=== PATIENT | female | born 1930 | race African-American/Black ===

== ENCOUNTER 2016-04-05 11:58 | Emergency (ER) | payer OTHER, BC ==
[2016-04-05 12:27] VITALS: TEMP 97.9; BMI 24.4
--- NOTE | 2016-04-05 12:34 | PDOC ---
History of Present Illness - General History Source: Patient, Old Records Exam Limitations: No Limitations - History of Present Illness Initial Comments: 04/05/16 12:36 The patient is an 85-year-old woman, accompanied by family, with a significant past medical history of hypertension, hypercholesterolemia, congestive heart failure (with pacemaker), end-stage renal disease (on hemodialysis on MWF), gatsroesophageal reflux disease and thyroid disease who was sent to the emergency department by her dialysis clinic for further evaluation of an irregular heart beat. Patient was in her outpatient dialysis when she was noted to have labile blood pressure and heart rates. Her last dialysis treatment was on Sunday without complications. Patient denies experiencing any chest pain, lightheadedness, dizziness, headaches, shortness of breath, visual changes, nausea, vomiting. Patient denies fever,chills, generalized weakness. No urinary complaints. Allergies: Penicillin Past Surgical History: Right nephrectomy. Right hernia repair. Permanet pacemaker. Primary Care Physician: Dr. Rajan Cook [phone]/ [phone] Contamination Consultant: Dr. Angelita Sullivan [phone] Board Liner Operator: Dr. Ronaldo Gonzalez <Anel Rowell - Last Filed: 04/05/16 13:45> <Taco Gupta - Last Filed: 04/05/16 15:51> - General Chief Complaint: Blood Pressure Problem Stated Complaint: Irregular Heart Beat Time Seen by Provider: 04/05/16 12:06 Past History <Anel Rowell - Last Filed: 04/05/16 13:45> - Past Medical History Anemia: Yes Asthma: No Cancer: No Cardiac Disorders: Yes (pacemaker) CVA: No COPD: No CHF: No Dementia: No Diabetes: No Dialysis: Yes ([facility], sun/sun/) GI Disorders: Yes (acid reflux) Disorders: No HTN: Yes Hypercholesterolemia: Yes Liver Disease: No Seizures: No Thyroid Disease: Yes (parathroid removed) - Surgical History Abdominal Surgery: Yes (RIGHT nephrectomy & Right inguinal hernia REPAIR) Appendectomy: No Cardiac Surgery: No Cholecystectomy: No Lung Surgery: No Neurologic Surgery: No Orthopedic Surgery: No - Immunization History Immunization Up to Date: Yes - Psycho/Social/Smoking Cessation Hx Anxiety: No Suicidal Ideation: No Smoking History: Never smoked Have you smoked in the past 12 months: No Information on smoking cessation initiated: No Hx Alcohol Use: No Drug/Substance Use Hx: No Substance Use Type: None Hx Substance Use Treatment: No <Taco Gupta - Last Filed: 04/05/16 15:51> - Past Medical History Allergies/Adverse Reactions: Allergies Allergy/AdvReac Type Severity Reaction Status Date / Time Penicillins Allergy Itching Verified 04/05/16 12:27 Home Medications: Ambulatory Orders Acetaminophen [Tylenol] 650 mg PO DAILY 04/05/16 Brimonidine Tartrate [Alphagan 0.15% -] 1 drop OU BID 04/05/16 Carvedilol 3.125 mg PO BID 04/05/16 Cinacalcet HCl [Sensipar] 90 mg PO DAILY 04/05/16 Docusate Sodium [Colace -] 100 mg PO DAILY 04/05/16 Iron Fum/FA/Vit Bcomp,C [Dialyvite 800 with Iron Tab] 1 each PO DAILY 04/05/16 Iron Polysaccharides [Niferex-150 -] 150 mg PO DAILY 04/05/16 Latanoprost 0.005% Eye Drops [Xalatan 0.005% Eye Drops -] 1 drop HS 04/05/16 Omeprazole 20 mg PO DAILY 04/05/16 Pantoprazole Sodium 40 mg PO DAILY 04/05/16 Sennosides [Senna] 8.6 mg PO DAILY 04/05/16 Review of Systems - Review of Systems Constitutional: No: Chills, Fever Respiratory: No: Cough, Shortness of Breath Cardiac (ROS): No: Chest Pain, Edema, Lightheadedness, Palpitations, Syncope ABD/GI: No: Nausea : No: Dysuria, Frequency Neurological: No: Headache All Other Systems: Reviewed and Negative <Taco Gupta - Last Filed: 04/05/16 15:51> *Physical Exam - Vital Signs Last Vital Signs Temp Pulse Resp BP Pulse Ox 97.9 F 54 L 16 129/88 100 04/05/16 12:17 04/05/16 12:17 04/05/16 12:17 04/05/16 12:17 04/05/16 12:17 - Physical Exam Comments: 04/05/16 12:44 GENERAL: The patient is awake, alert, and fully oriented, in no acute distress. HEAD: Normal with no signs of trauma. EYES: Pupils equal, round and reactive to light, extraocular movements intact, sclera anicteric, conjunctiva clear with no pallor. ENT: Ears normal, nares patent, oropharynx clear without exudates. Moist mucous membranes. NECK: Normal range of motion, supple without lymphadenopathy, JVD, or masses. LUNGS: slightly decreased at the right base, otherwise clear. HEART: Irregular rate with alternation bradycardia with regular tachycardia however patient is asymptomatic. There is also a 3/6 systolic ejection murmur that is best heard at the right upper sternal border. There is also a positive third heart sound Regular rate and rhythm, normal S1 and S2 without murmur or rub. ABDOMEN: Soft/nontender/nondistended. BS wnl. No guarding or rebound. No palpable masses. No hepatosplenomegaly. EXTREMITIES: There is palpabale thrill in the right upper extremity fistula that is neurovasculary intact. Normal range of motion, no edema. No clubbing or cyanosis. No cords, erythema, or tenderness. NEUROLOGICAL: Cranial nerves II through XII grossly intact. Normal speech. PSYCH: Normal mood, normal affect. SKIN: Warm, Dry, normal turgor, no rashes or lesions noted. <Anel Rowell - Last Filed: 04/05/16 13:45> - Vital Signs Last Vital Signs Temp Pulse Resp BP Pulse Ox 97.9 F 54 L 16 129/88 100 04/05/16 12:17 04/05/16 12:17 04/05/16 12:17 04/05/16 12:17 04/05/16 12:17 <Taco Gupta - Last Filed: 04/05/16 15:51> Heart Score/ECG Review #1 ECG reviewed & interpreted by me at: 12:23 Compared to previous ECG there are: No significant change (11/03/15) 04/05/16 13:18 Atrially sensed ventricular pacemaker at variable rates, ranging from 60 to 120. No secondary signs of acute ischemic change. <Taco Gupta - Last Filed: 04/05/16 15:51> ED Treatment Course - LABORATORY CBC & Chemistry Diagram: 04/05/16 12:36 04/05/16 12:36 - RADIOLOGY Radiograph Interpretation: 04/05/16 13:44 EXAM: RAD/CHEST X-RAY PORTABLE IMPRESSION: Since the prior study of 11/03/2015 at 1908 hours, again noted is a marked scoliosis with convexity to the right, large heart, sclerotic knob and double lead pacemaker. There is some scarring at the right base and in the lingula. There is no sign of infiltrate or failure. There are degenerative spine and shoulder changes. There is no change of an adverse nature since 2015. <Anel Rowell - Last Filed: 04/05/16 13:45> - LABORATORY CBC & Chemistry Diagram: 04/05/16 12:36 04/05/16 12:36 - RADIOLOGY Radiology Studies Ordered: Category Date Time Status CHEST X-RAY PORTABLE* [RAD] Stat Radiology 04/05/16 12:27 Ordered <Taco Gupta - Last Filed: 04/05/16 15:51> Medical Decision Making - Medical Decision Making 04/05/16 12:[address] José Luis Peck. Dr. Eloina Gutierrez will arrive later and examine the patient. <Anel Rowell - Last Filed: 04/05/16 13:45> - Medical Decision Making 04/05/16 13:24 A portion of this note was documented by scribe services under my direction. I have reviewed the details of the note, within reason, and agree with the documentation with the following case summary and management plan written by me. 85-year-old female with history of hypertension, CHF status post pacemaker, atrial fibrillation, end-stage renal disease on Sunday/Sunday/Sunday dialysis sent from her routine dialysis for evaluation of labile blood pressure and heart rate. Patient is completely asymptomatic, denies any infectious or dehydration complaints. Vitals as noted, heart rate variable from 60-120. Blood pressure stable and normal in the ED. Well-appearing, exam as noted otherwise 85-year-old female with history of atrial fibrillation and atrially paced pacemaker presents asymptomatic with variable heart rate. On prior EKGs, similar presentation likely 2/2 underlying afib and irregular pacing of pacemaker. check electrolytes given due for HD CXR EKG discussed with Dr. Peck, will be seen by Dr. Johnson 04/05/16 14:12 Labs are within normal limits, baseline elevated creatinine without electrolyte disturbance. Chest x-ray without acute pathology. Seen by Dr. Meeks at bedside, he has arranged for the patient to have outpatient dialysis this afternoon. Awaiting evaluation from cardiology Dr. Gutierrez. 04/05/16 15:[address] Johnson, cleared for discharge, agrees this is likely atrial fibrillation with variable conduction. Patient feels and looks well, agrees with discharge plan, will proceed directly to dialysis. <Taco Gupta - Last Filed: 04/05/16 15:51> *DC/Admit/Observation/Transfer - Attestations Scribe Attestion: 04/05/16 12:44 Documentation prepared by Anel Rowell, acting as phlebotomist medical lab assistant for Taco Gupta MD. <Anel Rowell - Last Filed: 04/05/16 13:45> <Taco Gupta - Last Filed: 04/05/16 15:51> Diagnosis at time of Disposition: Irregular heart rate, ESRD (end stage renal disease) on dialysis - Discharge Dispostion Disposition: HOME Condition at time of disposition: Stable - Referrals Referrals: Rajan Cook MD [Primary Care Provider] - Garry Meeks MD [Staff Physician] - Ronaldo Gonzalez MD [Staff Physician] - - Patient Instructions Printed Discharge Instructions: DI for Atrial Fibrillation Additional Instructions: Activity as tolerated. Stay hydrated. Blood tests today showed no acute abnormalities. Your irregular heart rate is likely due to to your underlying atrial fibrillation, and is expected. Continue your medications as previously prescribed by your physician. Proceed directly to dialysis as scheduled by Dr. Meeks. You should also follow up with Dr. Cook and Dr. Gonzalez as soon as possible regarding today's emergency department visit. Return to the emergency department for any new or concerning symptoms, particularly lightheadedness, chest pain or difficulty breathing, palpitations.
[2016-04-05 13:12] LABS: BASOPHIL 1.8 % (0-2.0); EOSINOPHIL 8.4 % (0-4.5); MCH 28.5 pg (25.7-33.7); MCHC 31.5 g/dl (32.0-36.0); MEAN CELL VOLUME 90.3 fl (80-96); NEUTROPHILS 53.7 % (42.8-82.8); PLATELET COUNT 216 K/MM3 (134-434); RDW 16.2 % (11.6-15.6); WHITE BLOOD COUNT 4.2 K/mm3 (4.0-10.0)
[2016-04-05 13:33] LABS: INR 1.07 (0.82-1.09); PROTHROMBIN TIME (PATIENT) 11.8 SEC (9.98-11.88)
[2016-04-05 13:36] LABS: ACTIVATED PTT 28.7 SECONDS (26.9-34.4)
[2016-04-05 13:37] LABS: ALBUMIN 2.7 g/dl (3.4-5.0); CALCIUM 7.4 mg/dL (8.5-10.1); MAGNESIUM 1.9 mg/dL (1.8-2.4)
[2016-04-05 13:39] LABS: CREATININE 6.8 mg/dL (0.55-1.02)
[2016-04-05 13:57] LABS: BILIRUBIN,TOTAL 0.3 mg/dL (0.2-1.0); TOT PROT 5.8 g/dl (6.4-8.2); TROPONIN I 0.03 ng/ml (0.00-0.05)
--- NOTE | 2016-04-05 14:43 | CONSULT ---
Consult - text type - Consultation Consultation Note: Renal Consult for ESRD on HD This is a 85 year old woman with PMHx of ESRD on HD (MWF @ [facility] ), Hx of Nephrectomy, Afib, Cardiomyopathy, PPM who presented from the dialysis unit with irregular and fluctuating HR before starting dialysis. Pt HR was in the 80s on presentation and then dropped to 44 and then 104 in a few minute time span. Pt was symptomatic during this time. Denies any dizziness, CP, SOB, CEDEÑO, lethargy, weakness. No fever or chills, Abd pain, N/V/D. In the ED pt noted to be in Afib. HR's have been in the 80-> 90's. No acute complaints. Last dialysis was Sunday w/o complication. PMhx: as above Allergies: NKDA Family Hx: NC Social Hx: NO T/A/D ROS: as per HPI, all other pertinent ros negative Home Meds: Home Medications Medication Instructions Recorded Acetaminophen [Tylenol] 650 mg PO DAILY 04/05/16 Brimonidine Tartrate [Alphagan 1 drop OU BID 04/05/16 0.15% -] Carvedilol 3.125 mg PO BID 04/05/16 Cinacalcet HCl [Sensipar] 90 mg PO DAILY 04/05/16 Docusate Sodium [Colace -] 100 mg PO DAILY 04/05/16 Iron Fum/FA/Vit Bcomp,C [Dialyvite 1 each PO DAILY 04/05/16 800 with Iron Tab] Iron Polysaccharides [Niferex-150 150 mg PO DAILY 04/05/16 -] Latanoprost 0.005% Eye Drops 1 drop HS 04/05/16 [Xalatan 0.005% Eye Drops -] Omeprazole 20 mg PO DAILY 04/05/16 Pantoprazole Sodium 40 mg PO DAILY 04/05/16 Sennosides [Senna] 8.6 mg PO DAILY 04/05/16 Vital Signs Temperature 97.9 F 04/05/16 12:17 Pulse Rate 54 L 04/05/16 12:17 Respiratory Rate 16 04/05/16 12:17 Blood Pressure 129/88 04/05/16 12:17 O2 Sat by Pulse Oximetry (%) 100 04/05/16 12:17 Gen: NAD, awake and alert HEENT: NC/AT, MMM CVS: irregular, No M/R Lungs: CTA Abd: Soft NT/ND Ext: No edema, clubbing or edema Access: Right ARM AVF + thrill CBC, BMP 04/05/16 12:36 04/05/16 12:36 A/P 85 year old woman with PMHx of ESRD on HD (MWF @ [facility]), Hx of Nephrectomy, Afib, Cardiomyopathy, PPM who presented from the dialysis unit with irregular and fluctuating HR before starting dialysis. #Afib with flucatuating HR Cardiology Evalulatoin HR WNL now no acute sympotms Cardiac Enzymes WNL #ESRD on HD for HD today, if stable for discharge can be done as outpatient if pt requires inpatient montoring will plan for dialysis at [facility] Thank you Garry Meeks DO
--- NOTE | 2016-04-05 15:15 | CON.CARD ---
Cardiology Consult (text) - Consultation Consultation Note: CC: tachy-izabel 84 year old female with HTN, afib, s/p PPM, ESRD on HD, s/p nephrectomy, GERD, anemia who presents from HD with variable heart rate. Hr noted to vary from 40's to > 100 bpm in short time frame. States she holds her coreg on hd days to avoid hypotension patient states she is asx, in her usual state of health. no change in po intake or recent infectious sx's. recent remote monitoring check of ppm function by outpatient cook night earlier this month. Lower rate limit 50 bpm. Denies orthopnea, pnd, le edema, cp, sob, dizziness, claudication or transient neurologic sx's. Denies f/c/s, n/v/d, visual disturbances, rash, cough. Past Medical History: per hpi Past Surgical History: Yes: Nephrectomy, Permanent Pacemaker Social History: never tobacco, no etoh or illicits Fam Hx: Daughter (HTN), mother with enlarged heart. ROS: per hpi Ambulatory Orders Acetaminophen [Tylenol] 650 mg PO DAILY 04/05/16 Brimonidine Tartrate [Alphagan 0.15% -] 1 drop OU BID 04/05/16 Carvedilol 3.125 mg PO BID 04/05/16 Cinacalcet HCl [Sensipar] 90 mg PO DAILY 04/05/16 Docusate Sodium [Colace -] 100 mg PO DAILY 04/05/16 Iron Fum/FA/Vit Bcomp,C [Dialyvite 800 with Iron Tab] 1 each PO DAILY 04/05/16 Iron Polysaccharides [Niferex-150 -] 150 mg PO DAILY 04/05/16 Latanoprost 0.005% Eye Drops [Xalatan 0.005% Eye Drops -] 1 drop HS 04/05/16 Omeprazole 20 mg PO DAILY 04/05/16 Pantoprazole Sodium 40 mg PO DAILY 04/05/16 Sennosides [Senna] 8.6 mg PO DAILY 04/05/16 Vital Signs - 24 hr 04/05/16 12:17 Temperature 97.9 F Pulse Rate 54 L Respiratory 16 Rate Blood Pressure 129/88 O2 Sat by Pulse 100 Oximetry (%) Intake & Output 04/03/16 04/04/16 04/05/16 04/06/16 07:59 07:59 07:59 07:59 Weight 94 lb NAD, calm. Lying flat comfortably JVD flat, neck supple RRR nl s1, s2 2/6 murmur at apex and LSB Trace basilar rales + bs soft nt nd ext without e/c/c + dp/pt no jaundice, diaphoresis CBC, BMP 04/05/16 12:36 04/05/16 12:36 Laboratory Tests 11/08/15 04/05/16 07:00 12:36 Magnesium 1.9 Total Bilirubin 0.3 AST 18 D ALT 9 L D Alkaline Phosphatase 993 H 1535 H D Troponin I 0.03 Albumin 2.7 L EKG: as-vpaced. Underlying atrial rhythm likely svt with conversion to SR and ? fusion beat. tele: intermittent svt with conversion to sinus izabel. echo 10/2015: Mildly decreased LV function, PPM lead. Mild AR. Mild-mod MR, mod TR. RVSP 30-40. Dense calcifications on MV and AV, can't rule out veg. Small effusion. L/RHC 2011: wedge 14, PA 32/10, RA 5; cors: 50-60% pRCA, 30-50% pLCX, mild fdiffuse LAD; EF 35% global; 84 year old female with HTN, afib, s/p PPM, ESRD on HD, s/p nephrectomy, GERD, anemia who presents from HD with variable heart rate. afib (tachy -izabel) - difficult to assess underlying rhythm but likely intermittent rapid SVT/ flutter in setting of holding av rose blockade (does regularly on HD days). - recent ppm check wnl. frequent mode switching. lower rate limit of 50 bpm. tachy-izabel likely 2/2 intermittent -vpaced rhythm in setting of svt and then conversion to sinus (lower rate limit 50 bpm). - No concerning findings. will f/u with cook night regarding rate control regimen and need for adjustment of pacemaker settings. - no signs of infection of hypovolemia at this time driving heart rate. - CHADS-VASC 3--3%/yr risk of CVA. But has fall risk which has deemed her too high risk for AC. Long history of being off anticoagulation. Has declined LA appendage closure. Con't ASA therapy. HTN - normotensive on outpatient coreg. Cont. NICM - EF naheed 35% in [address] ([address] che may have been slightly better/45%). Now low normal on coreg. Addition of CAROL/ARB has been limited by low bp's. - euvolemic with volume managment per HD. s/p PPM - home monitoring per Dr. Che, con't routine outpatient checks Elevated alk phos - thought to be 2/2 renal disease stable for d/c to HD from cardiovascular perspective with outpatient cardiology follow up
[2016-04-05 16:11] VITALS: BP 122/72; PULSE 62
--- NOTE | 2016-04-06 16:13 | EKG ---
Test Reason : Blood Pressure : / mmHG Vent. Rate : 097 BPM Atrial Rate : 115 BPM P-R Int : 000 ms QRS Dur : 156 ms QT Int : 374 ms P-R-T Axes : 000 -48 112 degrees QTc Int : 474 ms Atrial-sensed ventricular-paced rhythm ECG SHOWING POSSIBLE SVT FOLLOWED BY SINUS RHYTHM ABNORMAL ECG Confirmed by MO DE, TAMMIE ([id number]) on 04/06/2016 4:12:46 PM Referred By: Confirmed By:TAMMIE HASSAN MD
== END 2016-04-05 16:11 | disposition home or self-care (01) ==
LOC: JER 11:58
DX: R00.9 Unspecified abnormalities of heart beat (principal); N18.6 End stage renal disease; I12.0 Hypertensive chronic kidney disease with stage 5 chronic kidney disease or end stage renal disease; Z99.2 Dependence on renal dialysis; Z95.0 Presence of cardiac pacemaker; K21.9 Gastro-esophageal reflux disease without esophagitis; E78.00 Pure hypercholesterolemia, unspecified; E07.9 Disorder of thyroid, unspecified
CPT/HCPCS: 36415; 71010-TC; 80053; 82550; 83735; 84484; 85025; 85610; 85730; 93005; 93010; 99282-25

== ENCOUNTER 2017-08-01 10:43 | Emergency (ER) | payer OTHER, BC ==
[2017-08-01 10:53] VITALS: BP 111/67; PULSE 92; TEMP 98.7; BMI 19.0
[2017-08-01] MEDS ORDERED: ACETAMINOPHEN 500 MG TABLET (FP) PO ONE (11:30)
[2017-08-01] MEDS ORDERED: ACETAMINOPHEN 325 MG TABLET (FP) ONE ×2 (11:55→11:59)
--- NOTE | 2017-08-01 12:45 | PDOC ---
History of Present Illness <Javad Scott - Last Filed: 08/01/17 13:24> - History of Present Illness Initial Comments: 08/01/17 12:45 "The patient is an 86 year old female with a significant PMH of AFib (not on blood thinners), CHF (s/p PPM) ESRD (dialysis MWF), and partial blindness who presents to the emergency department for evaluation s/p mechanical fall prior to arrival. The patients daughter reports the patient was reaching for her walker in the bathroom when the walker slid forward, after which the patient fell to the floor and hit her head. She reports developing a frontal hematoma in the mid forehead but denies any pain. The patient denies LOC. Denies CP/SOB/ palpitations/lightheadedness at any time. The patients daughter notes the patient was set to undergo dialysis today but was instructed by Dr. Sullivan to come to the ED first for evaluation of her fall. Pt denies pain anywhere besides where she struck her head. The patient denies chest pain, shortness of breath, and dizziness. Denies fever, chills, nausea, vomit, diarrhea and constipation. Denies dysuria, frequency, urgency and hematuria. Allergies: Penicillins Past surgical history: Right nephrectomy. Right hernia repair. PPM. Social history: No reported cigarette, alcohol, or drug use. PCP: Dr. Joyce Herrera: Dr. Angelita Sullivan <Loy Monzon - Last Filed: 08/01/17 14:42> - General Chief Complaint: Injury Stated Complaint: HEAD INJURY Time Seen by Provider: 08/01/17 10:57 Past History <Javad Scott - Last Filed: 08/01/17 13:24> - Past Medical History Anemia: Yes Asthma: No Cancer: No Cardiac Disorders: Yes (pacemaker) CVA: No COPD: No CHF: No Dementia: No Diabetes: No Dialysis: Yes ([facility], mon/sun/) GI Disorders: Yes (acid reflux) Disorders: No HTN: Yes Hypercholesterolemia: Yes Liver Disease: No Seizures: No Thyroid Disease: Yes (parathroid removed) - Surgical History Abdominal Surgery: Yes (RIGHT nephrectomy & Right inguinal hernia REPAIR) Appendectomy: No Cardiac Surgery: No Cholecystectomy: No Lung Surgery: No Neurologic Surgery: No Orthopedic Surgery: No - Immunization History Immunization Up to Date: Yes - Suicide/Smoking/Psychosocial Hx Smoking History: Never smoked Have you smoked in the past 12 months: No Hx Alcohol Use: No Drug/Substance Use Hx: No Substance Use Type: None Hx Substance Use Treatment: No <NicolásLoy - Last Filed: 08/01/17 14:42> - Past Medical History Allergies/Adverse Reactions: Allergies Allergy/AdvReac Type Severity Reaction Status Date / Time Penicillins Allergy Itching Verified 04/05/16 12:27 Home Medications: Ambulatory Orders Acetaminophen [Tylenol] 650 mg PO DAILY 04/05/16 Brimonidine Tartrate [Alphagan 0.15% -] 1 drop OU BID 04/05/16 Cinacalcet HCl [Sensipar] 90 mg PO DAILY 04/05/16 Ferrous Fum/Folic Acid/Bcomp,C [Dialyvite 800 with Iron Tab] 1 each PO DAILY Omeprazole 20 mg PO DAILY 04/05/16 Aspirin 81 mg PO DAILY 08/01/17 Metoprolol Tartrate 25 mg PO DAILY 08/01/17 Review of Systems - Review of Systems Comments:: 08/01/17 12:47 "GENERAL/CONSTITUTIONAL: No fever or chills. No weakness. HEAD, EYES, EARS, NOSE AND THROAT: (+) Frontal hematoma, no active bleeding. No change in vision. No ear pain or discharge. No sore throat. CARDIOVASCULAR: No chest pain or shortness of breath. RESPIRATORY: No cough, wheezing, or hemoptysis. GASTROINTESTINAL: No nausea, vomiting, diarrhea or constipation. GENITOURINARY: No dysuria, frequency, or change in urination. MUSCULOSKELETAL: No joint or muscle swelling or pain. No neck or back pain. SKIN: No rash NEUROLOGIC: No headache, vertigo, loss of consciousness, or change in strength/ sensation. ENDOCRINE: No increased thirst. No abnormal weight change. HEMATOLOGIC/LYMPHATIC: No anemia, easy bleeding, or history of blood clots. ALLERGIC/IMMUNOLOGIC: No hives or skin allergy. " <Loy Monzon - Last Filed: 08/01/17 14:42> *Physical Exam - Vital Signs Last Vital Signs Temp Pulse Resp BP Pulse Ox 98.7 F 92 H 16 111/67 98 08/01/17 10:45 08/01/17 10:45 08/01/17 10:45 08/01/17 10:45 08/01/17 10:45 <Javad Scott - Last Filed: 08/01/17 13:24> - Vital Signs Last Vital Signs Temp Pulse Resp BP Pulse Ox 98.7 F 92 H 16 111/67 98 08/01/17 10:45 08/01/17 10:45 08/01/17 10:45 08/01/17 10:45 08/01/17 10:45 - Physical Exam Comments: 08/01/17 12:47 "GENERAL: Awake, alert, and fully oriented, in no acute distress. HEAD: + small hematoma to forehead, no laceration EYES: PERRLA, EOMI, sclera anicteric, conjunctiva clear ENT: Auricles normal inspection, hearing grossly normal, nares patent, oropharynx clear without exudates. Moist mucosa NECK: Nontender, no stepoffs, Normal ROM, supple, no lymphadenopathy, JVD, or masses LUNGS: Breath sounds equal, clear to auscultation bilaterally. No wheezes, and no crackles HEART: Regular rate and rhythm, normal S1 and S2, no murmurs, rubs or gallops ABDOMEN: Soft, nontender, normoactive bowel sounds. No guarding, no rebound. No masses EXTREMITIES: Normal range of motion, no edema. No clubbing or cyanosis. No cords , erythema, or tenderness NEUROLOGICAL: Cranial nerves II through XII intact. 5/5 strength and sensation in all extremities, Normal speech, normal gait, normal cerebellar function SKIN: Warm, Dry, normal turgor, no rashes or lesions noted. " <Loy Monzon - Last Filed: 08/01/17 14:42> ED Treatment Course - Medications Given in the ED: ED Medications Discontinued Medications Generic Name Dose Route Start Last Admin Trade Name Freq PRN Reason Stop Dose Admin Acetaminophen 1,000 mg 08/01/17 11:30 08/01/17 12:05 Tylenol - PO 08/01/17 11:31 1,000 mg ONCE ONE Administration <Javad Scott - Last Filed: 08/01/17 13:24> - RADIOLOGY Radiology Studies Ordered: Category Date Time Status HEAD CT WITHOUT CONTRAST [CT] Stat CT Scan 08/01/17 11:30 Ordered - Medications Given in the ED: ED Medications Discontinued Medications Generic Name Dose Route Start Last Admin Trade Name Freq PRN Reason Stop Dose Admin Acetaminophen 1,000 mg 08/01/17 11:30 08/01/17 12:05 Tylenol - PO 08/01/17 11:31 1,000 mg ONCE ONE Administration <Loy Monzon - Last Filed: 08/01/17 14:42> Medical Decision Making - Medical Decision Making 08/01/17 12:47 86 F with forehead hematoma s/p mechanical fall. - CT head 08/01/17 14:06 CT negative. Will call Dr. Mendez to confirm pt's HD appointment 08/01/17 14:40 Spoke with HD center. They are able to take pt today for HD. Pt is well appearing, with normal vitals. Clinically stable for DC at this time. I discussed the physical exam findings, ancillary test results and final diagnoses with the patient. I answered all of the patient's questions. The patient was satisfied with the care received and felt comfortable with the discharge plan and treatment plan. The patient agrees to follow up with the primary care physician within 24-72 hours. <Loy Monzon - Last Filed: 08/01/17 14:42> *DC/Admit/Observation/Transfer - Attestations Scribe Attestion: 08/01/17 13:24 Documentation prepared by Javad Scott, acting as medical assistant float for Loy Monzon MD. <Javad Scott - Last Filed: 08/01/17 13:24> - Attestations Physician Attestion: 08/01/17 14:42 I, Dr. Loy Monzon MD, attest that this document has been prepared under my direction and personally reviewed by me in its entirety. I further attest, that it accurately reflects all work, treatment, procedures and medical decision -making performed by me. <Loy Monzon - Last Filed: 08/01/17 14:42> Diagnosis at time of Disposition: Fall - Discharge Dispostion Disposition: HOME - Referrals Referrals: Rajan Cook MD [Primary Care Provider] - - Patient Instructions Printed Discharge Instructions: How to Prevent Falls Additional Instructions: Please go directly to your dialysis center NOW. They are waiting for you and will be able to dialyze you today. Return to the ER if you experience worsening headache, chest pain, shortness of breath, or any other concerning symptoms. Otherwise, follow up with your primary doctor within 1 week. - Post Discharge Activity
== END 2017-08-01 15:09 | disposition home or self-care (01) ==
LOC: JER 10:43
DX: Z04.3 Encounter for examination and observation following other accident (principal); W18.39XA Other fall on same level, initial encounter; Y93.89 Activity, other specified; Y92.009 Unspecified place in unspecified non-institutional (private) residence as the place of occurrence of the external cause; Z99.89 Dependence on other enabling machines and devices; I48.91 Unspecified atrial fibrillation; I10 Essential (primary) hypertension; K21.9 Gastro-esophageal reflux disease without esophagitis; E78.00 Pure hypercholesterolemia, unspecified; Z99.2 Dependence on renal dialysis; N15.1 Renal and perinephric abscess; Z95.0 Presence of cardiac pacemaker
CPT/HCPCS: 70450-TC; 99282-25